=== PATIENT | male | born 1970 | race Two or more races ===

== ENCOUNTER 2019-12-14 14:01 | Emergency (ER) | payer OTHER ==
[~2019-12-14] VITALS: Ht 170.2 cm; Wt 99.8 kg
[2019-12-14] MEDS ORDERED: LOSARTAN PO (14:19)
[2019-12-14] MEDS ORDERED: ADULT LOW DOSE81 M1 PO (14:19)
== END 2019-12-14 19:26 | disposition home or self-care (01) ==
LOC: ER 14:01
DX: K57.90 Diverticulosis of intestine, part unspecified, without perforation or abscess without bleeding (principal)

== ENCOUNTER 2019-12-19 11:31 | Emergency (ER) | payer OTHER ==
[~2019-12-19] VITALS: Ht 170.2 cm; Wt 97.5 kg
[~2019-12-19 11:31] MED LIST: ADULT LOW DOSE81 M1 PO; LOSARTAN PO
[2019-12-19] MEDS ORDERED: COZAAR50 MG (11:50)
== END 2019-12-19 14:27 | disposition home or self-care (01) ==
LOC: ER 11:31
DX: J35.01 Chronic tonsillitis (principal)

== ENCOUNTER 2020-09-17 09:01 | Inpatient (IN) | payer OTHER ==
[~2020-09-17] VITALS: Ht 170.2 cm; Wt 91.6 kg
[~2020-09-17 09:01] MED LIST changes: +COZAAR50 MG
== END 2020-09-20 13:23 | disposition home or self-care (01) | DRG 392 ==
LOC: ER 09:01 → SURH 21:17 → MEDI 09-18 23:08 → MEDJ 09-18 23:08 → MEDI 09-20 13:23
PROVIDERS: ADMIT Internal Medicine; ATTEND Internal Medicine
PROC: BW21ZZZ Computerized Tomography (CT Scan) of Abdomen and Pelvis (ICD-10-PCS; principal; 2020-09-17)
DX: K57.32 Diverticulitis of large intestine without perforation or abscess without bleeding (principal); I10 Essential (primary) hypertension; Z20.828 Contact with and (suspected) exposure to other viral communicable diseases

== ENCOUNTER → 2021-05-18 | Outpatient (CLI) | payer OTHER | END | disposition home or self-care (01) | LOC: TOM 07:45 | PROVIDERS: ATTEND Surgery | DX: K57.32 Diverticulitis of large intestine without perforation or abscess without bleeding (principal); R19.4 Change in bowel habit; R10.32 Left lower quadrant pain ==